=== PATIENT | female | born 1945 | race Caucasian/White ===

== ENCOUNTER 2016-10-17 07:54 | Day surgery (SDC) | payer MEDICARE, OTHER ==
--- NOTE | ~2016-10-17 | EGD ---
EGD REPORT [facility] [address] [place]. [address] NAME: SABRINA RODRIGUEZ : [birth year] STATUS : REG [facility] [place] PAT#: [id number] AGE: 71 ADM/REG DATE : 10/17/16 MR#: [id number] REPORT SERV DATE: 10/17/16 DICTATED BY: CHRISTIANO GA DATE: 10/17/16 REPORT STATUS : Draft TRANSCRIBED BY: [facility] DATE: 10/17/16 [facility] Center Patient Name: Sabrina Rodriguez Date of : 1945 Attending MD: CHRISTIANO GA MD Procedure Date No Time: 10/17/2016 Procedure: Colonoscopy Indications: High risk colon cancer surveillance: Personal history of non-advanced adenoma, last exam 2010. Patient Profile: Informed consent was obtained from the patient by me prior to the procedure. Risks, benefits, and alternatives were discussed including the risk of bleeding, perforation, infection, reaction to medicine, missed lesion, and cardiopulmonary complications. Referring MD: LEANDRO MCKINNEY Medicines: Monitored Anesthesia Care Complications: No immediate complications. Procedure: Pre-Anesthesia Assessment: - ASA Grade Assessment: III - A patient with severe systemic disease. After I obtained informed consent, the scope was passed under direct vision. Throughout the procedure, the patient's blood pressure, pulse, and oxygen saturations were monitored continuously. The PCF [id number] was introduced through the anus and advanced to the cecum, identified by appendiceal orifice and ileocecal valve. The colonoscope was slowly withdrawn with careful examination all mucosal surfaces including specific attention around flexures and tip deflection behind folds; retroflexion performed in rectum. The colonoscopy was performed without difficulty. The patient tolerated the procedure well. The quality of the bowel preparation was adequate. The ileocecal valve, appendiceal orifice and rectum were photographed. Findings: A sessile polyp was found in the rectum. The polyp was 5 mm in size. The polyp was removed with a cold biopsy forceps. Resection and retrieval were complete. Internal hemorrhoids were found during retroflexion and were mild. Impression: - One 5 mm polyp in the rectum. Resected and retrieved. - Internal hemorrhoids. Recommendation: - Patient has a contact number available for EGD REPORT [address] [address] NAME: SABRINA RODRIGUEZ : [birth year] STATUS : REG [facility] [place] PAT#: [id number] AGE: 71 ADM/REG DATE : 10/17/16 MR#: [id number] REPORT SERV DATE: 10/17/16 DICTATED BY: CHRISTIANO GA DATE: 10/17/16 REPORT STATUS : Draft TRANSCRIBED BY: [employer] DATE: 10/17/16 emergencies. The signs and symptoms of potential delayed complications were discussed with the patient. Return to normal activities tomorrow. Written discharge instructions were provided to the patient. - Regular diet. - Continue present medications. - Await pathology results. - Repeat colonoscopy for surveillance based on pathology results. Procedure Code(s): --- Professional --- 79607, Colonoscopy, flexible, proximal to splenic flexure; with biopsy, single or multiple Diagnosis Code(s): --- Professional --- K62.1, Rectal polyp K64.8, Other hemorrhoids Z86.010, Personal history of colonic polyps CPT copyright 2013 [employer]. All rights reserved. The codes documented in this report are preliminary and upon certified medical records coder review may be revised to meet current compliance requirements. CHRISTIANO GA MD 10/17/2016 9:53 AM This report has been signed electronically. Number of Addenda: 0 Note Initiated On: 10/17/2016 9:19 AM
[~2016-10-17 07:54] MED LIST: ALIGN4 MG PO; ALLEGRA180 PO; ALLERGY SHOT; ALPHA LIPOIC300 MG PO; ASAB PO; ATARAX50B PO; CALTRA600D PO; CINNAMONPO; CLARIT10 PO; COD LIVE1; COQ-10200 MG PO; COQ10100 MG OR; CRESTOR10 PO; GLUCPH PO; IMDUR30 PO; L-CARNITINE500 M1 OR; LOVAZA1 GM PO; MAGOX4 PO; METAMUCIL CAN7 OZ PO; NORV25 PO; RESTASIS OPH; SYN.05 PO; VITAMIN B-122500 MCG SL; VITAMIN D31000 UNIT PO; VITE PO
== END 2016-10-17 23:59 | disposition home health service (06) ==
LOC: DMU 07:54
PROVIDERS: Internal Medicine Gastroenterology
PROC: 0DBP8ZX Excision of Rectum, Via Natural or Artificial Opening Endoscopic, Diagnostic (ICD-10-PCS; principal; 2016-10-17 09:30)
DX: K62.1 Rectal polyp (principal); K64.8 Other hemorrhoids; G47.33 Obstructive sleep apnea (adult) (pediatric); E11.9 Type 2 diabetes mellitus without complications; K58.9 Irritable bowel syndrome, unspecified; E78.00 Pure hypercholesterolemia, unspecified; Z99.81 Dependence on supplemental oxygen; Z86.010 Personal history of colon polyps; Z88.8 Allergy status to other drugs, medicaments and biological substances; Z87.891 Personal history of nicotine dependence; Z90.710 Acquired absence of both cervix and uterus; Z98.51 Tubal ligation status; Z98.890 Other specified postprocedural states
CPT/HCPCS: 82962; 88305